=== PATIENT | male | born 1995 | race Caucasian/White ===

== ENCOUNTER 2020-10-01 20:01 | Emergency (ER) | payer OTHER ==
[~2020-10-01] VITALS: Ht 185.4 cm; Wt 72.6 kg
[~2020-10-01 20:01] MED LIST: ALBU90OI INH; Bactrim Ds Tab1 EACH PO; MONT5TCH PO; QVAR7.3 G1 IH
[2020-10-01 20:26] LABS: BASOPHILS ABSOLUTE AUTO 0.05 K/mm3 (0.00-0.23); BASOPHILS PERCENT AUTO 1 % (0-2); EOSINOPHILS PERCENT AUTO 3 % (0-6); Hematocrit 46.1 % (37.0-53.0); Hemoglobin 16.2 g/dL (13.5-17.5); IMMATURE GRAN ABSOLUTE AUTO 0.01 K/mm3 (0.00-0.10); IMMATURE GRAN PERCENT AUTO 0 % (0-1); LYMPHOCYTES ABSOLUTE AUTO 2.06 K/mm3 (0.84-5.20); LYMPHOCYTES PERCENT AUTO 32 % (21-46); MONOCYTES ABSOLUTE AUTO 0.68 K/mm3 (0.16-1.47); MONOCYTES PERCENT AUTO 11 % (4-13); Mean Corpuscular HGB 30.1 pg (26.0-34.0); Mean Corpuscular HGB Conc 35.1 g/dL (31.5-36.5); Mean Corpuscular Volume 86 fL (80-100); Mean Platelet Volume 9.7 fL (9.1-12.4); NEUTROPHILS ABSOLUTE AUTO 3.45 K/mm3 (1.96-9.15); NEUTROPHILS PERCENT AUTO 54 % (41-73); Platelet Count 268 K/mm3 (150-400); RDW Coefficient Variation 11.7 % (11.7-14.2); RDW Standard Deviation 36.4 fL (35.1-46.3); Red Blood Cell Count 5.39 M/mm3 (4.30-5.90); White Blood Cell Count 6.45 K/mm3 (4.00-11.30)
[2020-10-01 20:41] LABS: Alanine Aminotransfer (ALT/SGP 34 U/L (12-78); Albumin, Blood 4.4 g/dL (3.4-5.0); Albumin/Globulin Ratio 1.3 (0.8-1.8); Alk Phos 45 U/L (50-136); Anion Gap 4 mmol/L (6-16); Aspartate Aminotrans (AST/SGOT 28 U/L (12-37); Blood Urea Nitrogen 16 mg/dL (8-24); Bun/Creatinine Ratio 15.1 (12.0-20.0); CO2, Blood 28 mmol/L (21-32); Calcium, Blood 9.5 mg/dL (8.5-10.1); Chloride, Blood 107 mmol/L (98-108); Creatinine, Blood 1.06 mg/dL (0.60-1.20); Globulin, Blood 3.5 g/dL (2.2-4.0); Glomerular Filtration Rate >60 (60-); Glucose, Blood 81 mg/dL (70-99); Potassium, Blood 3.6 mmol/L (3.5-5.5); Sodium, Blood 139 mmol/L (136-145); Total Protein, Blood 7.9 g/dL (6.4-8.2); Troponin I <0.015 ng/mL (0.000-0.040)
[2020-10-01 21:47] LABS: Magnesium, Blood 1.8 mg/dL (1.6-2.4)
== END 2020-10-01 21:52 | disposition home or self-care (01) ==
LOC: ER 20:01
PROVIDERS: Emergency Medicine
DX: R00.0 Tachycardia, unspecified (principal); J45.909 Unspecified asthma, uncomplicated; Z88.0 Allergy status to penicillin; Z88.8 Allergy status to other drugs, medicaments and biological substances; Z79.899 Other long term (current) drug therapy
CPT/HCPCS: 71046; 80053; 83735; 84484; 85025; 93005; 93010; 99285-25

== ENCOUNTER 2024-05-27 07:40 | Day surgery (SDC) | payer OTHER ==
[~2024-05-27] VITALS: Ht 182.9 cm; Wt 71.8 kg
[~2024-05-27 07:40] MED LIST changes: +EPINEPhrine HCl 1 MG/ML 1ML Amp ONE
[2024-05-27] MEDS ORDERED: CeFAZolin Sodium 2,000 MG VIAL ONE (07:48)
[2024-05-27] MEDS ORDERED: Lactated Ringer's 1,000 ML IV ONE (08:30)
[2024-05-27] MEDS ORDERED: FentaNYL Citrate 50 MCG/ML 2 ML Injection ONE (09:15)
[2024-05-27] MEDS ORDERED: Midazolam HCl 1MG / ML 2ML Vial ONE (09:16)
[2024-05-27] MEDS ORDERED: propofoL 20 ML IV ONE (09:18)
[2024-05-27] MEDS ORDERED: Ondansetron HCl 2 MG / ML 2ML Vial ONE (09:26)
[2024-05-27] MEDS ORDERED: Dexamethasone Sod Phos 10 MG/ML 1ML VIAL ONE (09:26)
[2024-05-27] MEDS ORDERED: Bupivacaine 0.5% HCl 5 MG/ML 30MLVIAL INJ ONE (09:36)
--- NOTE | 2024-05-27 09:48 | NUR ---
05/27/24 0948 Tracy Woo 10ML OF BUPIVACAINE 0.5% MIXED AND VERIFIED WITH 0.05ML OF EPI (1MG/ML) TO MAKE BUPIVACAINE 0.5% WIHT EPI 1:200,000 FOR INJECTION AT THE OPSITE.
[2024-05-27] MEDS ORDERED: Ketorolac Tromethamine 30mg Vial ONE (10:04)
[2024-05-27 10:30] VITALS: BP 109/68
--- NOTE | 2024-05-27 11:24 | NUR ---
05/27/24 1124 Laura Pitt REVIEWED DISCHARGE INSTRUCTIONS, PRESCRIPTIONS AND FOLLOW UP WITH PATIENT AND . BOTH VERBALIZED UNDERSTANDING AND READINESS FOR DISCHARGE. POLAR PACK INSTRUCTIONS REVIEWED.
== END 2024-05-27 11:22 | disposition home or self-care (01) ==
LOC: ORSCSDS 07:40
PROVIDERS: Orthopaedic Surgery
PROC: 0SBC4ZZ Excision of Right Knee Joint, Percutaneous Endoscopic Approach (ICD-10-PCS; principal; 2024-05-27 09:00)
DX: S83.241A Other tear of medial meniscus, current injury, right knee, initial encounter (principal); J45.909 Unspecified asthma, uncomplicated; Z79.899 Other long term (current) drug therapy
CPT/HCPCS: J0171; J0690; J1100; J1885; J2250; J2405; J2704; J3010